=== PATIENT | female | born 1995 | race Caucasian/White ===

== ENCOUNTER → 2018-07-28 | Outpatient (REF) ==
--- NOTE | 2018-07-28 16:51 | Diagnostic Imaging Report ---
INDICATION: POSITIVE TB TEST COMPARISON: None. FINDINGS: Frontal and lateral views of the chest demonstrate normal heart size and pulmonary vascularity. The lungs are clear. There are no signs of infiltrate, pleural effusions or pneumothoraces. The visualized osseous structures show no acute abnormalities. IMPRESSION: 1. No acute process. No signs of infiltrates, effusions or pneumothoraces. Dictated by: Dictated on workstation # [id number]
== END | disposition home or self-care (01) ==
LOC: RAD 16:13
PROVIDERS: ATTEND Family Medicine
CPT/HCPCS: 71046

== ENCOUNTER → 2020-06-19 | Outpatient (CLI) | payer OTHER ==
--- NOTE | 2020-06-19 16:21 | Diagnostic Imaging Report ---
INDICATION: Cervicalgia. COMPARISON: None FINDINGS: Frontal, lateral, and odontoid views of the cervical spine were submitted. The cervical spine is visualized up to the C7/T1 level on the lateral projection. There is normal vertebral height and alignment. There is no evidence of fracture or bone destruction. No prevertebral soft tissue swelling is seen. No significant degenerative changes are noted. The open-mouth view demonstrates normal C1/C2 alignment. IMPRESSION: 1. Normal cervical spine series. Dictated by: Dictated on workstation # [id number]
== END ==
LOC: RAD 15:55
PROVIDERS: ATTEND Chiropractor
DX: M99.01 Segmental and somatic dysfunction of cervical region (principal); G44.219 Episodic tension-type headache, not intractable; M99.02 Segmental and somatic dysfunction of thoracic region; M99.03 Segmental and somatic dysfunction of lumbar region; M99.04 Segmental and somatic dysfunction of sacral region; M79.10 Myalgia, unspecified site; M54.2 Cervicalgia; R29.3 Abnormal posture
CPT/HCPCS: 72040

== ENCOUNTER → 2020-08-12 | Outpatient (CLI) | payer OTHER ==
--- NOTE | 2020-08-12 10:58 | Diagnostic Imaging Report ---
PROCEDURE: US Hepatic (Liver). TECHNIQUE: Multiple real-time grayscale images were obtained over the right upper quadrant in various projections. INDICATION: Elevated liver function tests. COMPARISON: None available. FINDINGS: The liver measures 18 cm in length. It demonstrates diffuse increased echogenicity indicative of hepatic steatosis. No focal hepatic lesion is appreciated. Portal vein is patent with normal directional flow. Visualized hepatic veins are normal. The gallbladder is distended without gallstones, wall thickening, or pericholecystic fluid. The common bile duct measures up to 0.3 cm in diameter. No intrahepatic biliary dilation. The visualized portions of the pancreas are normal. Portions of the head and tail are obscured by overlying bowel gas. The right kidney is normal in size. No hydronephrosis, shadowing calculi, or suspicious mass lesion. IMPRESSION: 1. Diffuse hepatic steatosis. 2. Normal gallbladder and bile ducts. Dictated by: Dictated on workstation # [id number]
--- NOTE | 2020-08-12 14:29 | Diagnostic Imaging Report ---
PROCEDURE: US PELVIC (NON OB) TECHNIQUE: Multiple real-time grayscale images were obtained over the pelvis in various projections transabdominally. INDICATION: Abnormal uterine bleeding Uterus measures 7.3 x 2.7 x 3.4 cm with normal endometrial thickness of 0.7 cm. There is no evidence of uterine mass. No adnexal mass is identified and there is blood flow to both ovaries. There is no evidence of free fluid in the pelvis. IMPRESSION: Unremarkable pelvic ultrasound. Dictated by: Dictated on workstation # [id number]
== END ==
LOC: RAD 08:00
PROVIDERS: ATTEND Family Medicine
DX: N93.9 Abnormal uterine and vaginal bleeding, unspecified (principal); R79.89 Other specified abnormal findings of blood chemistry; K76.0 Fatty (change of) liver, not elsewhere classified
CPT/HCPCS: 76705; 76856